=== PATIENT | female | born 1960 | race Caucasian/White ===

== ENCOUNTER 2016-05-19 10:30 | Outpatient (RCR) | payer MEDICARE, OTHER ==
[~2016-05-19 10:30] MED LIST: NKM
== END 2016-06-15 | disposition home or self-care (01) ==
LOC: PTY 10:30
DX: M17.11 Unilateral primary osteoarthritis, right knee (principal)

== ENCOUNTER 2017-09-01 08:00 | Outpatient (RCR) | payer MEDICARE, OTHER | END 2017-09-12 | disposition home or self-care (01) | LOC: PTY 08:00 | DX: M47.812 Spondylosis without myelopathy or radiculopathy, cervical region (principal) | CPT/HCPCS: 97110; 97161; G8981; G8982 ==

== ENCOUNTER 2017-09-20 09:30 | Outpatient (RCR) | payer MEDICARE, OTHER | END 2017-10-13 | disposition home or self-care (01) | LOC: PTY 09:30 | DX: M47.812 Spondylosis without myelopathy or radiculopathy, cervical region (principal) ==